=== PATIENT | female | born 1990 | race Caucasian/White ===

== ENCOUNTER 2022-10-21 09:26 | Emergency (ER) | payer BC ==
[~2022-10-21] VITALS: Ht 152.4 cm; Wt 39.5 kg
[2022-10-21] MEDS ORDERED: MUPI22OI30 TOP (10:10)
[2022-10-21] MEDS ORDERED: DOXY100C76 PO (10:10)
[2022-10-21] MEDS ORDERED: TETanus/Pertussis (Acell)/Diphther VAC/PF (Tdap-Adult) 0.5ml syringe IMVAC ONE (10:15)
[2022-10-21 10:28] VITALS: BP 137/90
== END 2022-10-21 10:40 | disposition home or self-care (01) ==
LOC: ER 09:27
DX: S90.862A Insect bite (nonvenomous), left foot, initial encounter (principal); L03.116 Cellulitis of left lower limb; Z88.0 Allergy status to penicillin; W57.XXXA Bitten or stung by nonvenomous insect and other nonvenomous arthropods, initial encounter; Y93.89 Activity, other specified; Y92.89 Other specified places as the place of occurrence of the external cause; Y99.8 Other external cause status
CPT/HCPCS: 90471; 90715; 99283

== ENCOUNTER → 2023-12-08 | Outpatient (CLI) | payer BC, MEDICAID | END | disposition home or self-care (01) | LOC: MRI 08:21 | PROVIDERS: ATTEND Family Medicine Sports Medicine | DX: S63.602A Unspecified sprain of left thumb, initial encounter (principal); M25.642 Stiffness of left hand, not elsewhere classified; M18.12 Unilateral primary osteoarthritis of first carpometacarpal joint, left hand; M79.672 Pain in left foot; X58.XXXA Exposure to other specified factors, initial encounter; Y93.89 Activity, other specified; Y92.89 Other specified places as the place of occurrence of the external cause; Y99.8 Other external cause status | CPT/HCPCS: 73218 ==

== ENCOUNTER 2024-02-08 08:16 | Day surgery (SDC) | payer MEDICAID ==
[2024-02-04 14:57] LABS: BASOPHILS % (AUTO) 0.5 % (0-1); EOSINOPHILS # (AUTO) 0.1 X10'3 (0-0.9); HEMATOCRIT 38.1 % (35.0-45.0); LYMPHOCYTES # (AUTO) 1.1 X10'3 (1.1-4.8); LYMPHOCYTES % (AUTO) 17.4 % (21-51); MEAN CORPUSCULAR HEMOGLOBIN 34.4 PG (27.0-31.0); MEAN CORPUSCULAR VOLUME 101.2 FL (78-98); MEAN PLATELET VOLUME 9.6 FL (7.4-10.4); MONOCYTES # (AUTO) 0.5 X10'3 (0-0.9); NEUTROPHILS # (AUTO) 4.8 X10'3 (1.8-7.7); NEUTROPHILS % (AUTO) 73.1 % (42-75); PLATELET COUNT 233 X10'3 (140-440); RED BLOOD COUNT 3.77 X10'6 (4.20-5.60); WHITE BLOOD COUNT 6.6 X10'3 (4.5-11.0)
[2024-02-04 15:04] LABS: ALANINE AMINOTRANSFERASE 53 U/L (12-78); ALBUMIN 4.3 G/DL (3.4-5.0); ALBUMIN/GLOBULIN RATIO 1.2 (1.1-1.5); ALKALINE PHOSPHATASE 81 IU/L (46-116); ANION GAP 10 (8-16); ASPARTATE AMINO TRANSFERASE 74 U/L (10-37); BILIRUBIN,TOTAL 0.7 MG/DL (0.1-1.0); BLOOD UREA NITROGEN 6 MG/DL (7-18); BUN/CREATININE RATIO 8.7 (10.0-20.0); CALCIUM 9.1 MG/DL (8.5-10.1); CHLORIDE 102 MMOL/L (99-107); CREATININE 0.69 MG/DL (0.40-0.90); GLUCOSE 75 MG/DL (70-104); POTASSIUM 3.8 MMOL/L (3.5-5.1); SODIUM 139 MMOL/L (135-145); TOTAL CARBON DIOXIDE 27.5 MMOL/L (24-32); eGFR > 90 ML/MIN
[2024-02-04 15:35] LABS: HCG SERUM QL NEGATIVE
[2024-02-08] VITALS (8 sets, daily range): BP systolic 131–147; BP diastolic 87–98; PULSE 62–88; RESP 13–16; TEMP 98.6; O2SAT 97–98
[~2024-02-08] VITALS: Ht 152.4 cm; Wt 44.7 kg
[2024-02-08] MEDS: cefazolin 2gm/D5W 100mL 100 ML IV ONE (05:30)
[~2024-02-08 08:16] MED LIST: CITA20TA28 PO
[2024-02-08] MEDS ORDERED: ondansetron/PF 4mg/2ml inj IV PRN (09:05)
[2024-02-08] MEDS ORDERED: meperidine/PF 25mg/ml syringe IV PRN ×3 (09:05)
[2024-02-08] MEDS ORDERED: morphine 4 MG/ML inj SYRINge IV PRN (09:05)
[2024-02-08] MEDS ORDERED: ringers solution, lacted 1,000 ML IV SCH (09:05)
[2024-02-08] MEDS ORDERED: morphine 2 MG/ML inj. syringe IV PRN (09:05)
[2024-02-08] MEDS ORDERED: proCHLORperazine 10 MG/2 ml inj IV PRN (09:05)
[2024-02-08] MEDS: famotidine 20mg tablet PO ONE (09:13)
[2024-02-08] MEDS: ringers solution, lacted 1,000 ML IV SCH (09:14)
[2024-02-08] MEDS ORDERED: fentaNYL/PF 50MCG/1 ML 2ML syringe ONE (11:01)
[2024-02-08] MEDS ORDERED: midazolam 1 mg/ML 2ml injection ONE ×2 (11:01→11:08)
[2024-02-08] MEDS ORDERED: propofol inj 20 ML IV ONE (11:07)
[2024-02-08] MEDS: BUPIVAcaine/PF 2.5mg/ml (0.25%) 10ml vial ONE (12:04)
[2024-02-08] MEDS: LIDOcaine 2% (20mg/ml) 5ml vial ONE (12:05)
== END 2024-02-08 12:46 | disposition home or self-care (01) ==
LOC: PAS 08:16
PROVIDERS: ATTEND Orthopaedic Surgery Hand Surgery
DX: M20.092 Other deformity of left finger(s) (principal); M25.532 Pain in left wrist; F41.9 Anxiety disorder, unspecified; Z88.0 Allergy status to penicillin; Z79.899 Other long term (current) drug therapy
CPT/HCPCS: 26440; 26525; 36415; 80053; 82948; 84703; 85025; J0690; J2250; J2704; J3010; J3490; J7030; J7120; Z7506; Z7512; A4215; A6449